=== PATIENT | female | born 1950 | race Caucasian/White ===

== ENCOUNTER 2018-06-14 14:49 | Emergency (ER) | payer OTHER, MEDICAID ==
[2018-06-14] MEDS: HYDROCODONE/APAP (5/325) TAB PO (15:27)
[2018-06-14] MEDS: ONDANSETRON (ODT) 4 MG TAB ODT (15:27)
[2018-06-14] MEDS: DEXAMETHASONE 4 MG/ML 5 ML INJ IM (15:32)
== END 2018-06-14 15:55 | disposition home or self-care (01) ==
LOC: FTE 14:49
DX: M10.072 Idiopathic gout, left ankle and foot (principal)
CPT/HCPCS: 96372; 99284-25

== ENCOUNTER 2018-10-26 11:46 | Emergency (ER) | payer OTHER, MEDICAID ==
[2018-10-26] MEDS: METHYLPRED. NA SUCC 500 MG in DEXTROSE 5% 50 ML IVPB (15:06)
== END 2018-10-26 16:08 | disposition home or self-care (01) ==
LOC: FTE 11:46
DX: M06.9 Rheumatoid arthritis, unspecified (principal); I10 Essential (primary) hypertension; E11.9 Type 2 diabetes mellitus without complications
CPT/HCPCS: 96365; 99284-25